=== PATIENT | male | born 1975 | race Caucasian/White ===

== ENCOUNTER 2018-04-10 11:31 | Emergency (ER) | payer SELFPAY ==
[~2018-04-10] VITALS: Ht 182.9 cm; Wt 85.0 kg
[2018-04-10 11:34] VITALS: BP 116/68; PULSE 88; RESP 18; TEMP 98.5
--- NOTE | 2018-04-10 11:39 | PD ---
HPI Chief Complaint: Overdose Time Seen by Provider: 11:36 Travel History International Travel<30 days: No Contact w/Intl Traveler<30days: No History of Present Illness HPI 43-year-old male presents the ED via EMS for evaluation after being found unresponsive in his car approximately 20 minutes before arrival. Patient was administered 0.8 Narcan in route has been alert and oriented since that time. On presentation the patient states that he does not wish to have any further evaluation. He states that he was using heroin IV in an attempt to get high before today's event. He denies suicidal ideation. He states that he has no chronic health problems, takes no daily medications. He has no somatic complaints. PFSH Social History Tobacco Use: No Review of Systems Except as stated in HPI: all other systems reviewed are Neg Physical Exam Exam Limitations: Other: (Exam performed in the ambulance hallway, limited due to privacy concerns.) Narrative GENERAL: Well-developed, well-nourished white male in no acute distress. SKIN: Focused skin assessment warm/dry. HEAD: Atraumatic. Normocephalic. EYES: Pupils equal and round. No scleral icterus. No injection or drainage. ENT: No nasal bleeding or discharge. Mucous membranes pink and moist. NECK: Trachea midline. No JVD. CARDIOVASCULAR: Regular rate and rhythm. No murmur appreciated. RESPIRATORY: No accessory muscle use. Clear to auscultation. Breath sounds equal bilaterally. GASTROINTESTINAL: Abdomen soft, non-tender, nondistended. Hepatic and splenic margins not palpable. MUSCULOSKELETAL: No obvious deformities. No clubbing. No cyanosis. No edema. NEUROLOGICAL: Awake and alert. No obvious cranial nerve deficits. Motor grossly within normal limits. Normal speech. PSYCHIATRIC: Appropriate mood and affect; insight and judgment normal. Data Data Last Documented VS Vital Signs Date Time Temp Pulse Resp B/P (MAP) Pulse Ox O2 Delivery O2 Flow Rate FiO2 04/10/18 11:34 98.5 88 18 116/68 (84) MDM Medical Decision Making Medical Screen Exam Complete: Yes Emergency Medical Condition: Yes Differential Diagnosis Unintentional overdose versus metabolic derangement versus ACS versus other Narrative Course 43-year-old male presents the ED via EMS after unintentional heroin overdose. Patient was administered 0.8 Narcan in route and has been alert and oriented since. On presentation the patient states that he does not want to have any further evaluation. Vitals reviewed. Limited exam performed in the ambulance hallway is unremarkable. Patient does not meet [facility] criteria. I explained to the patient the risks of leaving, up to and including . The patient acknowledged understanding of these risks but still chose to leave AGAINST MEDICAL ADVICE. Diagnosis Primary Impression: Heroin overdose Qualified Codes: T40.1X1A - Poisoning by heroin, accidental (unintentional), initial encounter Referrals: [facility] (Out patient) Additional Instructions: Seek outpatient treatment for substance abuse at [facility] or other community resources. Return to the ED for any urgent or emergent medical condition. Disposition: 07 AGAINST MEDICAL ADVICE Condition: Stable Giovanna Cabrera Apr 10, 2018 11:39
== END 2018-04-10 11:52 | disposition left against medical advice (07) ==
LOC: NEDAMB 11:31
DX: T40.1X1A Poisoning by heroin, accidental (unintentional), initial encounter (principal)
CPT/HCPCS: 99281